=== PATIENT | female | born 1995 | race Two or more races ===

== ENCOUNTER 2017-04-08 15:32 | Emergency (ER) | payer OTHER ==
[~2017-04-08] VITALS: Ht 175.3 cm; Wt 68.0 kg
--- NOTE | 2017-04-08 15:32 | NUR ---
2 CM LAC TO L EYEBROW S/P TRIP AND FALL TODAY. NAD NOTED. PT AAO X4, AMB WITH STEADY GAIT. RR EVEN AND UNLABORED. PENDING MD CHOW.
[2017-04-08] MEDS ORDERED: LIDOCAINE 2% 20 ML MDV ONE (16:03)
--- NOTE | 2017-04-08 16:20 | NUR ---
PT REFUSING CT FOR NOW, DR. CUETO IS AWARE.
--- NOTE | 2017-04-08 16:30 | NUR ---
PA AT BEDSIDE FOR SUTURE PLACEMENT
[2017-04-08] MEDS ORDERED: IBUPROFEN 600 MG TABLET PO ONE ×2 (17:53→18:00)
[2017-04-08 18:12] VITALS: BP 116/69
--- NOTE | 2017-04-08 18:17 | NUR ---
Patient discharged to home in stable condition. Written and verbal after care instructions given. Patient verbalizes understanding of instruction.
== END 2017-04-08 18:18 | disposition home or self-care (01) ==
LOC: ER 15:35
DX: S01.112A Laceration without foreign body of left eyelid and periocular area, initial encounter (principal); R55 Syncope and collapse; E86.0 Dehydration; Z88.0 Allergy status to penicillin; W22.8XXA Striking against or struck by other objects, initial encounter; Y93.89 Activity, other specified; Y92.89 Other specified places as the place of occurrence of the external cause; Y99.9 Unspecified external cause status
CPT/HCPCS: 70450-TC; 70486-TC; A4606; A6402; J3490; Z7610